=== PATIENT | female | born 1965 | race Caucasian/White ===

== ENCOUNTER 2017-06-17 00:58 | Inpatient (IN) | payer MEDICARE, MEDICAID ==
[~2017-06-17] VITALS: Ht 167.6 cm; Wt 127.9 kg
[2017-06-17] VITALS (19 sets, daily range): BP systolic 92–193; BP diastolic 52–105
[~2017-06-17 00:58] MED LIST: ALB17R INH; ALP5 PO; ALPR-429 PO; ASPI-1471 PO; CEP500 PO; CYCL-277 PO; DAR100 PO; ESC10 PO; ESCI10TA8 PO; FLUT1AER INH; FURO-45 PO; GABA-549 PO; HYDR2TAB74 PO; MONT10TA PO; NABU-1 PO; OMEP-137 PO; POTA-30 PO; PRAM0.2524 PO; TRAM-420 PO
[2017-06-17] MEDS ORDERED: FAMOTIDINE 20 MG TAB PO ONE (05:50)
[2017-06-17] MEDS ORDERED: NS(*) 0.9% 500 ML BAG 0 ML ONE (05:50)
[2017-06-17] MEDS ORDERED: NORMOSOL R SOLN(*) 1000 ML BAG 1,000 ML IV PRN (06:00)
[2017-06-17] MEDS ORDERED: LIDOCAINE/SOD BICARB 8.4% SYR ID ONE (06:00)
[2017-06-17] MEDS ORDERED: CLINDAMYCIN(*) 900 MG/NS 50 ML 50 ML IVPB ONE (06:00)
[2017-06-17] MEDS ORDERED: MIDAZOLAM 2 MG/2 ML VIAL IVP PRN (06:00)
[2017-06-17] MEDS ORDERED: THROMBIN (BOVINE) 20,000 UNIT VIAL ONE (06:21)
[2017-06-17] MEDS ORDERED: REMIFENTANIL HCL 1 MG VIAL ONE (06:39)
[2017-06-17] MEDS ORDERED: ACETAMINOPHEN(*)1000 MG/100 ML 100 ML IVPB ONE (06:39)
[2017-06-17] MEDS ORDERED: PROPOFOL EMUL(*) 10MG/ML 20 ML 20 ML ONE (06:40)
[2017-06-17] MEDS ORDERED: KETAMINE HCL 200 MG/20 ML MDV ONE (06:40)
[2017-06-17] MEDS ORDERED: ONDANSETRON 4 MG/2 ML VIAL ONE (06:40)
[2017-06-17] MEDS ORDERED: DEXAMETHASONE SOD PHOS 10MG/ML ONE (06:40)
[2017-06-17] MEDS ORDERED: LIDOCAINE MPF 1% 5 ML VIAL ONE (06:40)
[2017-06-17] MEDS ORDERED: NS 0.9% 20 ML SDV 0 ML ONE (06:47)
[2017-06-17] MEDS ORDERED: fentaNYL CITR 250 MCG/5 ML AMP ONE (07:05)
[2017-06-17] MEDS ORDERED: SUGAMMADEX SOD 200 MG/2 ML SDV ONE ×2 (07:40→10:13)
[2017-06-17] MEDS ORDERED: HYDROmorphone HCL 2 MG/ML SDV ONE (07:43)
[2017-06-17] MEDS ORDERED: fentaNYL CITR 100 MCG/2 ML AMP ONE ×2 (07:50→10:41)
[2017-06-17] MEDS ORDERED: TRANEXAMIC AC 1000 MG/10ML SDV 1,000 MG in DEXTROSE 5% 50 ML BAG 50 ML IVPB ONE (07:55)
[2017-06-17] MEDS ORDERED: SUCCINYLCHOL CHL 200MG/10ML VL ONE (08:00)
[2017-06-17] MEDS ORDERED: LABETALOL HCL 20 MG/4 ML SYR ONE (08:00)
[2017-06-17] MEDS ORDERED: ROCURONIUM BROM 10 MG/ML 10 ML ONE (08:00)
--- NOTE | 2017-06-17 10:48 | RADIOLOGY IMAGING REPORT ---
[facility] PATIENT NAME: Serenity Nguyen : 1965 MR: [id number] V: [id number] EXAM DATE: ORDERING PHYSICIAN: ROCÍO VELOZ TECHNOLOGIST: Location: [facility] Patient: Serenity Nguyen : 1965 Visit/Account:[id number] Date of Sevice: 06/17/2017 LUMBAR SPINE 1 VIEW Indication: L4-5 FUSION Comparison: None. Findings: 2 intraoperative images are reviewed. Images demonstrate lumbar spine surgery, with instru ments at the level of L4-5. IMPRESSION: Intraoperative images from lumbar spine surgery. Report Dictated By: Alfrdeo Tracy at 06/17/2017 10:43 AM Report E-Signed By: Alfredo Tracy at 06/17/2017 10:44 AM WSN:[email or web address]
[2017-06-17] MEDS ORDERED: diphenhydrAMINE 25 MG CAP PO PRN (10:50)
[2017-06-17] MEDS ORDERED: APAP/HYDROCODONE 325/5 TAB PO PRN (10:50)
[2017-06-17] MEDS ORDERED: BISACODYL 10 MG SUPP PR PRN (10:50)
[2017-06-17] MEDS ORDERED: MAGNESIUM HYDROXIDE* 30ML UDCP PO PRN (10:50)
[2017-06-17] MEDS ORDERED: BENZOCAINE/MENTHOL 1 EACH LOZG PO PRN (10:50)
[2017-06-17] MEDS ORDERED: LR(*) 1000 ML BAG 1,000 ML IV PRN (10:50)
[2017-06-17] MEDS ORDERED: FLUSH 10 ML SYR IVP PRN (10:50)
[2017-06-17] MEDS ORDERED: ONDANSETRON 4 MG/2 ML VIAL IVP PRN (10:50)
[2017-06-17] MEDS ORDERED: ceFAZolin 3 GM in NS 0.9% 100 ML BAG IVPB SCH (12:00)
--- NOTE | 2017-06-17 12:55 | Hospitalist Progress Note ---
Subjective Progress Notes Subjective Patient seen post-op. Reviewed PMHx (SHAGUFTA, chronic pain, anxiety, COPD) and medications. At present she c/o surgical site pain. Physical Exam Vital Signs Date Time Temp Pulse Resp B/P (MAP) Pulse Ox O2 Delivery O2 Flow Rate FiO2 06/17/17 12:15 63 143/68 (93) 95 06/17/17 12:00 Nasal Cannula 4.0 06/17/17 11:52 98.5 06/17/17 11:00 16 Intake and Output 06/18/17 07:00 Intake Total 1900 ml Output Total 0 ml Balance 1900 ml Intake Oral 250 ml IV Total 1650 ml Output Emesis 0 ml # Voids 0 # Bowel Movements 0 General Appearance: Alert, Awake Cardiovascular: Regular Rate and Rhythm Respiratory: Other (clear anteriorly) Assessment and Plan Problems: (1) ANXIETY DISORDER, UNSPECIFIED Status: Chronic Assessment & Plan: Will continue her Xanax, but will have hold parameters as she is receiving quite a few medications that can cause sedation. (2) COPD (chronic obstructive pulmonary disease) Status: Chronic Assessment & Plan: Continue Breo Ellipta and supplemental oxygen. (3) Chronic pain Status: Chronic Assessment & Plan: This may complicate her pain control measures. As she has had significant reaction to oxycodone, would not use hydrocodone as well. Would use the Dilaudid IV for initial post-op pain control and then transition back to her oral Dilaudid. We will continue gabapentin. (4) SHAGUFTA (obstructive sleep apnea) Status: Chronic Assessment & Plan: Continue CPAP with O2. Exam Sepsis Risk: No Definite Risk MYAH DREW MD Jun 17, 2017 12:55
[2017-06-17] MEDS: GABAPENTIN 300 MG CAP PO SCH ×3 (13:17→20:47)
[2017-06-17] MEDS: GABAPENTIN 100 MG CAP PO SCH ×3 (13:18→20:48)
[2017-06-17] MEDS: HYDROmorphone HCL 2 MG/ML SDV IVP PRN ×5 (13:18→23:17)
[2017-06-17] MEDS: ALPRAZolam 0.5 MG TAB PO PRN (13:18)
[2017-06-17] MEDS: SIMETHICONE 80 MG CHEW CHEW PRN ×2 (13:36→16:52)
--- NOTE | 2017-06-17 13:52 | OPERATIVE REPORT 1 ---
EVENT DATE: June 17, 2017 SURGEON: Jefferson Julio MD ANESTHESIOLOGIST: Garcia Cesar MD ANESTHESIA: General endotracheal WELT WHEELER: Chilango Massey PA-C PREOPERATIVE DIAGNOSIS L4-L5 spinal stenosis with spondylolisthesis. POSTOPERATIVE DIAGNOSIS L4-L5 spinal stenosis with spondylolisthesis. PROCEDURE PERFORMED L4-L5 laminectomy and posterolateral instrumented fusion. IV FLUIDS 1700 mL. ESTIMATED BLOOD LOSS 250 mL. IMPLANTS 6.5 mm x 45 mm Reline pedicle screws from [employer] x 4, 40 mm connecting rods from [employer] x 2 and locking caps from [employer] x 4. SPECIMENS None. DRAINS None. COMPLICATIONS None. DISPOSITION Post anesthesia care unit. INDICATION FOR SURGERY Ms. Nguyen is a 51-year-old female who presented to my clinic with a chief complaint of significant pain, numbness, tingling and weakness in bilateral lower extremities. She had a difficult time ambulating secondary to the worsening weakness, and had failed physical therapy, medications and activity modifications. Her physical examination was significant for global lower extremity weakness and her imaging studies showed significant stenosis at the L4 -L5 level with a mobile spondylolisthesis present. Secondary to ongoing symptoms not responding to nonoperative treatment, she was offered and elected to undergo an L4-L5 laminectomy with posterolateral instrumented fusion. Prior to surgery, I explained in detail to the patient the possible risks of surgery. These included bleeding, infection, damage to surrounding structures, spinal fluid leak, infection, meningitis, nerve root injury and anesthetic complications including , blindness, sexual dysfunction, autonomic nervous system dysfunction as well as unforeseen medical and surgical complications. An understanding that spinal surgery is better at improving extremity discomfort than axial spine pain was stressed. DESCRIPTION OF PROCEDURE On the day of surgery, the patient was admitted to the preoperative hold area, and all questions were answered. The operative site was identified and marked by myself. The patient was brought in good condition to the operating room, and after succumbing to anesthesia, was placed in the prone position on a Raymundo table. Care was taken to pad all bony protuberances and soft tissues. Appropriate perfusion pressures were maintained throughout the course of the operation. Preoperative antibiotics were dosed according to the appropriate timing schedule. At the conclusion of the procedure, sponge and needle count were correct x 2. Final time out was undertaken by members of the operating team to confirm correct patient, correct level and correct surgery. The patient was prepped and draped in a standard sterile orthopedic fashion, and incision was made over the intended spinal levels. Sharp dissection and electrocautery were used to dissect down to the posterior elements. A lateral radiograph was obtained to confirm correct spinal levels. Posterior musculature was elevated off the posterior elements in a subperiosteal fashion. We dissected out to the tips of the transverse processes of L4 and L5, taking care to identify the future starting points for pedicle screws. Those lateral recesses were then packed with thrombin-soaked cigars. A rongeur was then used to remove the spinous process of L4. The lamina was carefully thinned with use of a rongeur and the high speed josh, and then a straight and angled 0 curette was used to undermine the superior insertion of the ligamentum flavum on the inferior aspect of the L4 lamina. A midline decompression was then performed utilizing 3-0 and 4-0 Kerrison rongeurs. Care was taken to use a [place] elevator to separate the dura from any adhesive bone or soft tissue prior to use of the Kerrison punch. Once the midline decompression was completed, a bilateral lateral recess decompression was performed, utilizing 3-0 and 4-0 Kerrison rongeurs. The lateral recesses and foramina were then carefully checked with a Jeremiah elevator to ensure complete decompression of the neural elements, both traversing and exiting. Once this was completed, hemostasis was obtained through placement of FloSeal and surgical patties. Attention was then turned to placement of pedicle screws. Appropriate starting points for pedicle screws were identified at the L4 and L5 level. This was at approximately the junction of the pars interarticularis, the lateral border of the superior articular process and the midpoint of the transverse process. A high speed josh was used to decorticate the starting point, and then a Lenke probe was advanced against resistance through the isthmus of the pedicle. A ball tip feeler was then used to palpate all quadrants medially, laterally, superiorly, inferiorly, as well as distally to confirm absence of bony breaching. The 6.5 x 45 mm pedicle screws were then placed bilaterally at L4 after preparation of pedicles as previously described, and then at L5 bilaterally as well. Electrophysiologic monitoring was utilized to test the pedicle screws, and all tested appropriately. The connecting rods were then chosen and placed within the tulips of the pedicle screws, and locking caps were placed. A lateral radiograph was obtained to confirm correct placement of the instrumentation. The locking caps were then finally tightened utilizing the torque limiting device, and the wound was then irrigated with 2 liters of sterile saline solution. The transverse processes were then decorticated with a high speed josh , and we utilized local bone to bone graft in the lateral recesses, both on the right and the left, between the L5 transverse process. The wound was then closed in layers utilizing interrupted sutures for the deep fascia, inverted interrupted sutures for the superficial fascia, and then a running subcuticular skin stitch. Sponge and instrument counts were correct x 2. POSTOPERATIVE CARE PLAN Ms. Nguyen will remain in the hospital until she meets discharge criteria. She will then follow up in my clinic two weeks postoperatively for a wound check and examination. DESTINEE
[2017-06-17] MEDS: CLINDAMYCIN(*) 900 MG/NS 50 ML 50 ML IVPB SCH ×2 (14:55→23:16)
[2017-06-17] MEDS: DIAZEPAM 5 MG TAB PO PRN ×2 (15:06→21:52)
[2017-06-17] MEDS: DOCUSATE SODIUM 100 MG CAP PO SCH (20:47)
[2017-06-17] MEDS: PANTOPRAZOLE SOD 40 MG TABEC PO SCH (20:47)
[2017-06-18] MEDS: HYDROmorphone HCL 2 MG/ML SDV IVP PRN ×11 (02:13→23:44)
[2017-06-18 03:40] VITALS: BP 174/74
[2017-06-18 03:47] VITALS: BP 174/74
[2017-06-18] MEDS: SIMETHICONE 80 MG CHEW CHEW PRN (03:50)
[2017-06-18] MEDS: DIAZEPAM 5 MG TAB PO PRN ×3 (05:24→21:16)
[2017-06-18] MEDS ORDERED: FLUTICASONE/VILANTEROL 100 MCG/25 MCG INH INH SCH (06:00)
[2017-06-18 06:21] LABS: PLATELET COUNT, AUTOMATED 206 K/uL (150-450)
[2017-06-18] MEDS: CLINDAMYCIN(*) 900 MG/NS 50 ML 50 ML IVPB SCH (06:33)
[2017-06-18 07:10] VITALS: BP 123/84
[2017-06-18] MEDS: GABAPENTIN 300 MG CAP PO SCH ×4 (08:34→21:16)
[2017-06-18] MEDS: GABAPENTIN 100 MG CAP PO SCH ×4 (08:34→21:16)
[2017-06-18] MEDS: MONTELUKAST SODIUM 10 MG TAB PO SCH (08:35)
[2017-06-18] MEDS: DOCUSATE SODIUM 100 MG CAP PO SCH ×2 (08:35→21:16)
[2017-06-18] MEDS: ALPRAZolam 0.5 MG TAB PO PRN ×3 (08:46→19:25)
[2017-06-18] MEDS: ACETAMINOPHEN(*)1000 MG/100 ML 100 ML IVPB PRN ×2 (08:47→15:05)
[2017-06-18] MEDS ORDERED: PATIENT'S OWN MED INH SCH (09:00)
[2017-06-18] MEDS ORDERED: PANTOPRAZOLE SOD 40 MG TABEC PO SCH (09:00)
--- NOTE | 2017-06-18 09:57 | Hospitalist Progress Note ---
Subjective Progress Notes Subjective Patient is complaining of severe pain this morning. No acute events overnight. Patient Complains of: Cardiovascular: No: Chest Pain Respiratory: No: Shortness of Breath Physical Exam Vital Signs Date Time Temp Pulse Resp B/P (MAP) Pulse Ox O2 Delivery O2 Flow Rate FiO2 06/18/17 07:10 99.7 86 17 123/84 (97) 94 Nasal Cannula 5.0 Intake and Output 06/19/17 07:00 Intake Total 240 ml Balance 240 ml Intake Oral 240 ml # Voids 1 General Appearance: Alert, Awake, No Acute Distress, Afebrile Cardiovascular: Regular Rate and Rhythm Respiratory: No Respiratory Distress, Clear to Auscultation Psych: Alert & Oriented X3, Appropriate Mood & Affect Result Diagram: 06/18/1760606/18/17606 Assessment and Plan Problems: (1) ANXIETY DISORDER, UNSPECIFIED Status: Chronic Assessment & Plan: Will continue her Xanax, but will have hold parameters as she is receiving quite a few medications that can cause sedation. (2) COPD (chronic obstructive pulmonary disease) Status: Chronic Assessment & Plan: Continue Breo Ellipta and supplemental oxygen. (3) Chronic pain Status: Resolved Assessment & Plan: This may complicate her pain control measures. As she has had significant reaction to oxycodone, would not use hydrocodone as well. We will continue Dilaudid IV for initial post-op pain control and then transition back to her oral Dilaudid. We will continue gabapentin. (4) SHAGUFTA (obstructive sleep apnea) Status: Chronic Assessment & Plan: Continue CPAP with O2. Exam Sepsis Risk: No Definite Risk SHADY ARANGO Jun 18, 2017 09:57
[2017-06-18 11:06] VITALS: Ht 167.6 cm; Wt 127.9 kg
[2017-06-18 11:10] VITALS: BP 113/66
[2017-06-18] MEDS ORDERED: NS(*) 0.9% 500 ML BAG 500 ML ONE (15:18)
[2017-06-18 20:12] VITALS: BP 112/65
[2017-06-18] MEDS: PANTOPRAZOLE SOD 40 MG TABEC PO SCH (21:15)
[2017-06-18] MEDS: ACETAMINOPHEN 500 MG TAB PO PRN (21:16)
[2017-06-18 23:07] VITALS: BP 106/55
[2017-06-19] VITALS (7 sets, daily range): BP systolic 132–166; BP diastolic 77–98
[2017-06-19] MEDS: HYDROmorphone HCL 2 MG/ML SDV IVP PRN (03:19)
[2017-06-19] MEDS: DIAZEPAM 5 MG TAB PO PRN ×3 (04:09→23:50)
[2017-06-19] MEDS: ALPRAZolam 0.5 MG TAB PO PRN ×2 (07:20→19:52)
[2017-06-19] MEDS: GABAPENTIN 100 MG CAP PO SCH ×4 (07:20→20:29)
[2017-06-19] MEDS: MONTELUKAST SODIUM 10 MG TAB PO SCH (07:20)
[2017-06-19] MEDS: ACETAMINOPHEN 500 MG TAB PO PRN ×2 (07:20→17:30)
[2017-06-19] MEDS: DOCUSATE SODIUM 100 MG CAP PO SCH ×2 (07:21→20:29)
[2017-06-19] MEDS: GABAPENTIN 300 MG CAP PO SCH ×4 (07:21→20:29)
--- NOTE | 2017-06-19 08:28 | Hospitalist Progress Note ---
Subjective Progress Notes Subjective Patient is complaining of surgical site pain this morning. Patient Complains of: Cardiovascular: No: Chest Pain Respiratory: No: Shortness of Breath Physical Exam Vital Signs Date Time Temp Pulse Resp B/P (MAP) Pulse Ox O2 Delivery O2 Flow Rate FiO2 06/19/17 07:55 99.5 82 22 152/77 (102) 98 High-Flow Nasal Cannula 5.0 General Appearance: Alert, Awake, No Acute Distress Cardiovascular: Regular Rate and Rhythm Respiratory: No Respiratory Distress, Clear to Auscultation Psych: Alert & Oriented X3, Appropriate Mood & Affect Result Diagram: 06/18/1760606/18/17606 Assessment and Plan Problems: (1) ANXIETY DISORDER, UNSPECIFIED Status: Chronic Assessment & Plan: Will continue her Xanax, but will have hold parameters as she is receiving quite a few medications that can cause sedation. (2) COPD (chronic obstructive pulmonary disease) Status: Chronic Assessment & Plan: Continue Breo Ellipta and supplemental oxygen. (3) Chronic pain Status: Resolved Assessment & Plan: We will start her on oral Dilaudid today, in hopes of transferring that patient to [facility] home tomorrow. We will continue gabapentin. (4) SHAGUFTA (obstructive sleep apnea) Status: Chronic Assessment & Plan: Continue CPAP with O2. Exam Sepsis Risk: No Definite Risk SHADY ARANGO MOTEL CLERK Jun 19, 2017 08:28
[2017-06-19] MEDS: NABUMETONE 500 MG TAB PO SCH ×2 (09:41→20:28)
[2017-06-19] MEDS: HYDROmorphone HCL 2 MG TAB PO PRN ×3 (09:41→23:50)
--- NOTE | 2017-06-19 15:59 | RADIOLOGY IMAGING REPORT ---
[facility]AC[facility] PATIENT NAME: Serenity Nguyen : 1965 MR: [id number] V: [id number] EXAM DATE: ORDERING PHYSICIAN: ROCÍO VELOZ TECHNOLOGIST: Location: [facility] Patient: Serenity Nguyen : 1965 Visit/Account:[id number] Date of Sevice: 06/19/2017 Exam type: LUMBAR SPINE 2 OR 3 VIEW History: post-op Comparison: The 2017. Findings: There are postsurgical changes from posterior lumbar interbody fusion at L4 and L5. The vertebral toña dies appear stable in alignment. This mild disc space narrowing at L4-5 and a minimal 3 mm anterior listhesis of L4 with respect L5 IMPRESSION: 1. As above Report Dictated By: Joelle Nicholson MD at 06/19/2017 3:53 PM Report E-Signed By: Joelle Nicholson MD at 06/19/2017 3:55 PM WSN:[email or web address]
[2017-06-19] MEDS: PANTOPRAZOLE SOD 40 MG TABEC PO SCH (20:28)
[2017-06-20] MEDS ORDERED: ACET-1966 PO (00:45)
[2017-06-20] MEDS ORDERED: ACET500T68 PO ×3 (00:48→00:52)
[2017-06-20] MEDS ORDERED: ALPR-429 PO (00:53)
[2017-06-20] MEDS ORDERED: HYDR2TAB74 PO (00:53)
[2017-06-20 03:02] VITALS: BP 159/94
[2017-06-20] MEDS: DIAZEPAM 5 MG TAB PO PRN (06:07)
[2017-06-20] MEDS: HYDROmorphone HCL 2 MG TAB PO PRN (06:07)
[2017-06-20] MEDS: ALPRAZolam 0.5 MG TAB PO PRN (06:07)
== END 2017-06-20 06:30 | DRG 460 ==
LOC: OR 00:58 → MED 11:45
PROVIDERS: ADMIT Orthopaedic Surgery; ATTEND Orthopaedic Surgery
PROC: 5A09357 Assistance with Respiratory Ventilation, Less than 24 Consecutive Hours, Continuous Positive Airway Pressure (ICD-10-PCS; 2017-06-17)
PROC: 0SG0071 Fusion of Lumbar Vertebral Joint with Autologous Tissue Substitute, Posterior Approach, Posterior Column, Open Approach (ICD-10-PCS; principal; 2017-06-17 07:08)
DX: M48.062 Spinal stenosis, lumbar region with neurogenic claudication (principal); Z68.42 Body mass index [BMI] 45.0-49.9, adult; M43.16 Spondylolisthesis, lumbar region; J44.9 Chronic obstructive pulmonary disease, unspecified; E66.01 Morbid (severe) obesity due to excess calories; G47.33 Obstructive sleep apnea (adult) (pediatric); M06.9 Rheumatoid arthritis, unspecified; F32.9 Major depressive disorder, single episode, unspecified; I45.10 Unspecified right bundle-branch block; G89.29 Other chronic pain; F41.9 Anxiety disorder, unspecified; Z96.651 Presence of right artificial knee joint; Z90.710 Acquired absence of both cervix and uterus; Z99.81 Dependence on supplemental oxygen; Z88.5 Allergy status to narcotic agent; Z87.891 Personal history of nicotine dependence; Z90.49 Acquired absence of other specified parts of digestive tract
CPT/HCPCS: 36415; 72020; 72100; 82310; 82374; 82435; 82565; 82947; 84132; 84295; 84520; 85025; 94660; 97162; C1713; J0131; J0330; J1100; J1170; J2001; J2250; J2405; J2704; J3010; J3490; J7040; J7050; J7060